=== PATIENT | female | born 1970 | race Caucasian/White ===

== ENCOUNTER 2020-04-03 05:35 | Observation (INO) ==
--- NOTE | 2020-03-27 15:17 | Anesthesiology Consultation ---
Date of Service March 27, 2020 Assessment & Plan (1) Encounter for pre-operative examination: Chart Review Chart Review: Acceptable Risk for Surgery (pending 03/27 Covid results ) and Patient NOT seen in Pre Admission Testing Per nursing assessment 03/27/2020, patient resides in [facility]. Denies any other travel.. No known contact with PUIs or Covid positive people. No current Covid related symptoms. Had preop Covid testing done 03/27- results pending Left breast lumpectomy with axillary node dissection 03/06/2020 = done under [facility] with LMA #4. No issues noted History Surgery Operation Date: 04/03/20 07:00 Proposed Procedures p Left Breast Mastectomy - Antolin Edmondson DO, FACS Height/Weight Height: 5 ft 8 in Weight: 88.451 kg Allergies Allergy/AdvReac Type Severity Reaction Status Date / Time No Known Drug Allergies Allergy Verified 03/27/20 10:04 Medications Home Medications Medication Instructions Recorded Confirmed Last Taken apixaban 5 mg tablet 5 mg PO BID #60 tab 12/14/19 03/27/20 03/03/20 20:30 omeprazole 20 mg capsule,delayed 20 mg PO DAILY PRN 02/13/20 03/27/20 03/05/20 19:00 release loratadine [Claritin] 10 mg PO QAM 02/29/20 03/27/20 03/05/20 11:00 sulfamethoxazole 800 1 tab PO BID #14 tab 03/26/20 03/27/20 Unknown mg-trimethoprim 160 mg tablet Past Medical History Medical History Anxiety Breast cancer CHEMO; LUMPECTOMY Deep vein thrombosis LEFT ARM AFTER A-PORT SURGERY. ON ELIQUIS. Depression with anxiety GERD (gastroesophageal reflux disease) History of arthritis History of migraine Port-A-Cath in place PLACED 08/2019 Skin cancer Swelling PT REPORTS ONGOING SWELLING TO LEFT BREAST AFTER LUMPECTOMY - REASON FOR CURRENT ABX - HAS APPT WITH SURGEON 03/27/20 FOR ASPIRATION TO R/O INFECTION Past Family History Family History Father Malignant neoplasm of larynx Mother COPD (chronic obstructive pulmonary disease) Denies family history of Ovarian cancer Breast cancer Colorectal cancer Past Surgical History Surgical History H/O toe surgery lora hammertoes History of cryosurgery cervix History of dental surgery History of lumpectomy of left breast 03/06/2020 [facility] Hx of carpal tunnel repair BL S/P colonoscopy S/P lumbar fusion S/P tonsillectomy S/P tubal ligation Status post surgery A-PORT (08/2019) Social History Smoking Status: Current every day smoker tobacco type: cigarettes Smoking cigarettes per day: 3/4 PPD Do You Dip or Chew Tobacco: No Hx Alcohol Use: Yes Alcohol type: beer alcohol intake frequency: holidays/special occasions only Hx Substance Use: No substance use type: does not use Testing Laboratory Results Laboratory Tests 03/27/20 03/27/20 14:05 14:05 WBC 7.11 Hgb 13.8 Hct 39.9 Plt Count 175 Sodium 138 Potassium 3.4 L Chloride 106 Carbon Dioxide 26 BUN 7 Creatinine 0.72 Glucose 99 Electrocardiogram Date: 09/06/19 Findings: + NSR @ (74) Nonspecific T wave abnormality. Chest X-Ray Date: 09/20/19 There is been interval placement of a right-sided A-Port catheter. The tip projects over the superior vena cava. There is no pneumothorax. Heart is the upper limits of normal in size. There is diffuse elevation of interstitium, consistent with mild pulmonary vascular congestion/fluid overload. There is no lobar consolidation Echocardiogram Date: 09/19/19 EF: 65 to 70% LV Function: normal RWMA: + none Valvular Disease: + no significant valvular disease
[2020-04-03] MEDS ORDERED: LR 15ML/HR IV SCH (06:00)
[2020-04-03] MEDS ORDERED: CEFAZOLIN 2000MG 2,000 MG/15 ML SYR IV SCH (06:00)
[2020-04-03] MEDS ORDERED: PROPOFOL IV EMULSION 10 MG/ML 20 ML VIAL IV ONE (06:36)
[2020-04-03] MEDS ORDERED: LIDOCAINE HCL 2% 2 ML VIAL/AMP(20MG/ML) INFIL ONE (06:36)
[2020-04-03] MEDS ORDERED: MIDAZOLAM HCL 1 MG/ML 2ML VIAL ONE (06:36)
[2020-04-03] MEDS ORDERED: fentaNYL citrate 100 MCG/2 ML VIAL ONE ×2 (06:36→07:37)
[2020-04-03] MEDS ORDERED: DEXAMETHASONE SOD INJ 4 MG/ML VIAL ONE (06:36)
[2020-04-03] MEDS ORDERED: ONDANSETRON INJ 2 MG/ML 2 ML VIAL ONE (06:36)
[2020-04-03] MEDS ORDERED: BUPIVACAINE 0.5 % 5 MG/1 ML MPF 30ML VIAL ONE (06:48)
[2020-04-03] MEDS ORDERED: BUPIVACAINE LIPOSOME 1.3% 266 MG/20 ML VIAL ONE (06:48)
[2020-04-03] MEDS ORDERED: ONDANSETRON INJ 2 MG/ML 2 ML VIAL IV PRN ×2 (06:50→10:58)
[2020-04-03] MEDS ORDERED: HYDROmorphone INJ 1 MG/ML SYRINGE IV PRN (06:50)
[2020-04-03] MEDS ORDERED: ATROPINE SULFATE 0.1 MG/ML 10ML SYR IV PRN (06:50)
[2020-04-03] MEDS ORDERED: ePHEDrine sulfate 50 MG/ML AMP IV PRN (06:50)
--- NOTE | 2020-04-03 06:58 | History & Physical Bridge Note ---
Date of Service April 03, 2020 History & Physical Bridge Note I have examined the patient, reviewed the History & Physical and in the interval since the performance of the History & Physical I have noted the following changes of clinical significance: sterile seroma aspirated, otherwise no change. no changes noted
--- NOTE | 2020-04-03 09:12 | Operative Report ---
PG Post Operative Report Pre & Post Diagnosis Operation Date: 04/03/20 07:00 Pre-Op Diagnosis: Left Breast Cancer Post-Op Diagnosis: Left Breast Cancer I identified the patient and participated in the time-out.: Yes Procedure Operation Date: 04/03/20 07:00 Actual Procedures p Left Breast Mastectomy(Left) - Antolin Edmondson DO, FACS Surgeon Antolin Edmondson DO, FACS Egg Candler Tati Sy Estimated Blood Loss 20 Findings Consistent with Post-Op Diagnosis left mastectomy performed, good hemostasis, drain placed. Specimens left breast Drains 10mm agus drain Anesthesia Type General Complications none Disposition Accompanied Patient To Recovery: No Disposition: Recovery Room Indications 49-year-old female with triple negative breast cancer and history of neoadjuvant chemotherapy status post left breast lumpectomy with positive margins. After discussion at multidisciplinary cancer conference as well as discussion with the patient, plan for left mastectomy. The risks of the procedure were discussed, all questions were answered, and the patient agreed to proceed with surgery as planned. Description of Procedure The patient was properly identified, consented, and taken to the operating room where she was placed in the supine position. General endotracheal anesthesia was induced. SCDs and a safety belt were placed. Preoperative antibiotics were administered. The patient's left chest and axilla were prepped and draped in the standard sterile fashion. Surgical timeout was performed and all parties were in agreement that this was the correct patient and procedure to be performed and we continued as planned. A transversely oriented elliptical incision was made that encompassed the nipple-arreolar complex and the prior incision on the left breast. Subcutaneous flaps were raised to the clavicle superiorly, the sternum medially, and the rectus sheath inferiorly. Care was taken to leave a few millimeters of fat underneath the skin flaps. The breast was then taken off the chest wall including the pectoralis fascia from superior medial to inferior lateral. We did encounter a prior seroma cavity which was completely excised. We completed the dissection to the serratus and the specimen was removed. The specimen was oriented. The wound was irrigated and hemostasis was confirmed. A 10 mm AGUS drain was placed underneath the mastectomy flap. These exited inferior to the incision and were secured into place with 2-0 nylon sutures. The skin was closed with interrupted 3-0 Vicryl deep dermal sutures, followed by 4-0 Monocryl running subcuticular suture. Dermabond was placed over the incision. A drain sponge and sterile dressings were applied and secured into place using a postsurgical bra. The patient was extubated in the operating room and taken to the PACU where she recovered without apparent incident. All sponge, instrument and needle counts were correct at the conclusion of the procedure. The patient tolerated the procedure well. The physician professional nursing assistant was present and scrubbed for the entire the case. She was critical in positioning the patient, prepping and draping, retraction and exposure, closure the incisions, and placement of the dressings. I attest to the content of the Intraoperative Record and any orders documented therein. Any exceptions are noted below.
[2020-04-03] MEDS: fentaNYL citrate 100 MCG/2 ML VIAL IV PRN ×4 (09:36→09:55)
[2020-04-03] MEDS ORDERED: OXYCODONE/ACETAMINOPHEN 5mg/325mg TAB PO PRN (10:58)
[2020-04-03] MEDS ORDERED: MoRPHine SULFATE 2 MG/ML CARP IV PRN (10:58)
[2020-04-03] MEDS ORDERED: MoRPHine SULFATE 4 MG/ML 1 ML CARP\\VIAL IV PRN (10:58)
--- NOTE | 2020-04-03 14:36 | Anesthesiology Progress Note ---
Date of Service April 03, 2020 Anesthesia Post Procedure Vital Signs Vital Signs: Temp Pulse Pulse Resp BP Pulse Ox 04/03/20 13:07 66 16 102/66 92 04/03/20 12:10 63 16 100/65 92 04/03/20 12:08 75 15 100/67 93 04/03/20 11:10 66 16 106/68 92 04/03/20 11:01 36.2 C L 70 18 121/78 92 04/03/20 10:20 69 14 107/63 94 04/03/20 10:10 36.4 C L 68 16 119/73 94 04/03/20 10:00 74 14 120/70 95 04/03/20 09:50 68 16 110/78 94 04/03/20 09:40 76 12 113/77 93 04/03/20 09:30 82 20 115/72 94 04/03/20 09:21 36.0 C L 85 22 118/88 94 04/03/20 06:19 36.6 C 71 20 112/64 97 Pain Intensity Left Axilla: Pain Intensity: 6 Transfer of Care Handoff Completed per policy Notes Mental Status: alert / awake / arousable and participated in evaluation Patient Amnestic to Procedure: Yes Nausea / Vomiting: adequately controlled Pain: adequately controlled Airway Patency, RR, SpO2: stable & adequate BP & HR: stable & adequate Hydration State: stable & adequate Anesthetic Complications: no major complications apparent and Pt Satisfied with anesthetic care
[2020-04-03] MEDS: LACTATED RINGER'S 1,000 ML IV SCH ×2 (14:40→18:38)
[2020-04-03] MEDS: OXYCODONE/ACETAMINOPHEN 5mg/325mg TAB PO PRN ×2 (16:01→21:59)
[2020-04-03] MEDS: CEFAZOLIN 2000MG 2,000 MG/15 ML SYR IV SCH ×2 (16:01→23:51)
[2020-04-04] MEDS: OXYCODONE/ACETAMINOPHEN 5mg/325mg TAB PO PRN ×3 (02:18→10:55)
[2020-04-04] MEDS: LACTATED RINGER'S 1,000 ML IV SCH (06:21)
[2020-04-04 07:19] LABS: Hematocrit (blood only) 37.1 % (37-47); Hemoglobin 12.4 g/dL (12.0-16.0); Mean Corpuscular Hemoglobin 33.5 pg (25-34); Mean Corpuscular Hgb Conc 33.4 g/dL (32-36); Mean Corpuscular Volume 100.3 fL (80-100); Mean Platelet Volume 10.7 fL (7.4-10.4); Platelet Count 164 K/uL (130-400); RDW Coefficient of Variation 13.9 % (11.5-14.5)
[2020-04-04 07:29] LABS: BUN Creatinine Ratio 14.2 (10-20); Est GFR (Non-African American) 106.1
[2020-04-04] MEDS: CEFAZOLIN 2000MG 2,000 MG/15 ML SYR IV SCH (07:35)
--- NOTE | 2020-04-04 08:24 | Anesthesiology Progress Note ---
Date of Service April 04, 2020 Anesthesia Post Procedure Vital Signs Vital Signs: Temp Pulse Pulse Resp BP Pulse Ox 04/04/20 07:48 36.3 C L 56 L 16 99/63 L 95 04/04/20 03:20 92 04/04/20 03:10 82 L 04/04/20 03:07 36.7 C 67 18 113/55 L 92 04/03/20 23:57 92 04/03/20 23:09 36.7 C 68 18 91/56 L 90 04/03/20 20:16 36.4 C L 60 16 102/57 L 91 04/03/20 16:03 36.5 C 64 16 120/68 94 04/03/20 13:07 66 16 102/66 92 04/03/20 12:10 63 16 100/65 92 04/03/20 12:08 75 15 100/67 93 04/03/20 11:10 66 16 106/68 92 04/03/20 11:01 36.2 C L 70 18 121/78 92 04/03/20 10:20 69 14 107/63 94 04/03/20 10:10 36.4 C L 68 16 119/73 94 04/03/20 10:00 74 14 120/70 95 04/03/20 09:50 68 16 110/78 94 04/03/20 09:40 76 12 113/77 93 04/03/20 09:30 82 20 115/72 94 04/03/20 09:21 36.0 C L 85 22 118/88 94 Pain Intensity Left Axilla: Pain Intensity: 5 Notes Mental Status: alert / awake / arousable and participated in evaluation Nausea / Vomiting: adequately controlled Pain: adequately controlled Airway Patency, RR, SpO2: stable & adequate BP & HR: stable & adequate Hydration State: stable & adequate Anesthetic Complications: Pt Satisfied with anesthetic care
--- NOTE | 2020-04-04 08:53 | Surgery Progress Note ---
Date of Service April 04, 2020 Assessment & Plan (1) Malignant neoplasm of left breast: POD#1 left breast mastectomy regular diet as tolerates Hbg stable at 12.4 continue pulmonary toilet and activity as tolerates KEDAR drain serosancc output. will ask for KEDAR drain teaching prior to dispo will check up on later for likely discharge today will leave instructions for pt to follow up in clinic with Dr. ordonez within 1-2 weeks Supervising Physician Co-Signing Physician Notes Patient S&E, agree with above. POD#1 left simple mastectomy. Doing well, pain controlled, drain with 90cc ss output, hg stable. flaps viable. plan to d/c today, f/u next week in clinic for possible drain removal. Subjective Patient had a good night. Says she feels hungry this AM. Has some expected incisional soreness, but is manageable with the pain medication. Physical Exam Physical Exam: awake/alert Chest (Breasts): Additional Comments: surgical dressings c/d/i KEDAR drain serosancc Results & Data Vital Signs (Past 12 Hours) Vital Signs Temp Pulse Resp BP Pulse Ox 04/04/20 07:48 36.3 C L 56 L 16 99/63 L 95 04/04/20 03:20 92 04/04/20 03:10 82 L 04/04/20 03:07 36.7 C 67 18 113/55 L 92 04/03/20 23:57 92 04/03/20 23:09 36.7 C 68 18 91/56 L 90 PG Care Time/CCT Total # of Minutes Spent Total Time Spent with Patient: Total time spent is greater than 50% in co ordination of care (as documented) at patient's floor/unit and/or counseling patient: Coding Level of Care Code None Diagnoses Malignant neoplasm of left breast C50.912
[2020-04-04] MEDS ORDERED: OXYCODONE/ACETAMINOPHEN 5mg/325mg TAB PO PRN (08:58)
[2020-04-04] MEDS ORDERED: PANTOprazole 40 MG TAB PO SCH (09:00)
[2020-04-04] MEDS ORDERED: LORATADINE 10 MG TAB PO SCH (09:00)
--- NOTE | 2020-04-05 12:51 | Discharge Summary ---
Date of Service April 05, 2020 Principal Diagnosis malignant neoplasm of left breast Discharge Exam awake/alert Respiratory normal respiratory effort Chest (Breasts) Additional Comments: surgical dressings to left chest c/d/i, KEDAR drain with serosanguineous output Discharge Data Allergies Allergy/AdvReac Type Severity Reaction Status Date / Time No Known Drug Allergies Allergy Verified 04/03/20 06:04 Procedures Performed Operation Date: 04/03/20 07:00 Actual Procedures p Left Breast Mastectomy(Left) - Antolin Edmondson DO, FACS Hospital Course (1) Malignant neoplasm of left breast: This is a 49y F with a PMH of left breast cancer who went to the OR on 04/03/[address] Edmondson for a planned left breast mastectomy. The patient tolerated the procedure well, see operative report for full details. The patient recovered in the PACU and was transferred to the surgical nursing floor in stable condition with a KEDAR drain, regular diet, and pain medication as needed. Overnight the patient had no acute issues. POD#1 she was tolerating a regular diet, pain managed with prn meds, surgical site c/d/i, and she was educated on KEDAR drain care. Her Hbg was stable post op and she was instructed to resume her home eliquis. On 04/04 the patient was deemed stable for discharge to home with instructions to follow up in the surgery clinic within 1 week. Total Time Total Time Spent Total Time Spent (In Minutes): 10 Discharge Plan Discharge Items Patient Disposition: Home - Self-Care Reason For Visit: Left Breast Cancer Discharge Diagnosis: left breast mastectomy Activity: Per Instructions section Lifting Comment: no more than 20lbs Bathing Comment: may shower starting 04/04/20; no soaking in tubs Exercise/Sports: Wait until after follow-up appointment Driving/Machine Use: do not resume driving while taking narcotics for pain Non-emergency contact: Surgeon Call non-emergency contact if: you have any medication questions, your symptoms worsen, your pain is not controlled, your pain is worsening, your pain is unusual for you, you have a fever, your temperature is above 101.5, your wound has increased redness, your wound has increased drainage and your wound pain has increased Follow-up/Referrals: Cresencio Sanon MD [Primary Care Provider] - Antolin Edmondson DO, FACS [Physician] - 04/09/20 9:45 am (Please call to schedule follow up in clinic within 1-2 weeks) Diet: Regular Addtl Attending Provider Instructions: Please care for your surgical drain as instructed prior to discharge from the hospital. Empty is 2-3 times daily as needed. You may remove your surgical dressing and shower, no soaking or scrubbing the wounds. You may place gauze between your skin and bra to lessen irritation aroun d the incision You may resume your Eliquis Pending Studies at Discharge: Yes Studies:: surgical pathology Stand-Alone Forms: [facility], Opioid Pain Management Medications and DC Order Prescriptions: New oxycodone-acetaminophen [Percocet] 5-325 mg tablet 1 - 2 tab PO .q4-6h PRN (Reason: pain, for initial therapy, max 6 tabs per day) Qty: 15 RF: 0 Continued Eliquis 5 mg tablet 5 mg PO BID Qty: 60 RF: 5 omeprazole 20 mg capsule,delayed release(DR/EC) 20 mg PO DAILY PRN (Reason: Acid Reflux) RF: 0 loratadine [Claritin] 10 mg Tablet 10 mg PO QAM RF: 0 Discharge Orders: Discharge Order (Routine); Ordered 04/04/20 Ordered By: Tati Carty/Other Patient Handouts: DVT Post Op Prevention, Mastectomy Admission Data Admit Date/Time: 04/03/20 09:23 Attending Provider: Antolin Edmondson Admit Provider: Antolin Edmondson Primary Care Provider: Cresencio Sanon Other Interventions: Discharge Summary Assessment (RN) Last Done: 04/04/20 10:37 DC Date/Time DO NOT enter until pt leaves facility: 04/04/20 12:03 Coding Level of Care Code D/C Day Management <30 mins Diagnoses Malignant neoplasm of left breast C50.912
== END 2020-04-04 12:03 | disposition home or self-care (01) ==
LOC: 3N 05:35 → ASU 05:35

== ENCOUNTER 2020-10-02 14:06 | Inpatient (IN) ==
--- NOTE | 2020-10-02 15:03 | Emergency Department Note ---
Impression & Plan Hypoxia, Pleural effusion, Ascites, Acute hyponatremia, Elevated liver enzymes ED Provider Note NAME: SHRADDHA ZAMUDIO AGE: 49 SEX: F : 1970 ARRIVES VIA: Walk-In INFORMANT: [Patient] ED PROVIDER(S): [Cresencio Sotelo MD] CHIEF COMPLAINT: Shortness of breath HISTORY OF PRESENT ILLNESS: The patient is a 49-year-old female who presents to the ER with about 3 weeks of shortness of breath. She has gained about 19 pounds in just around a months timeframe. She has noticed abdominal bloating, leg edema. No real cough. She states that she has not had a fever. Patient noticed some dark urine in the last week and has had some occasional burning and frequency. The patient states that she has no appetite but she is not vomiting. She does not have diarrhea. She states that she has to sleep in a recliner, she cannot lie flat. The patient states that she does have breast cancer, it is metastatic. She is taking oral chemotherapy. She has a DVT in her left upper extremity and is currently on Coumadin. She went to the cancer center today, her O2 saturation was 80%, she was placed on oxygen and sent to the ED. Lab work was drawn at the cancer center. REVIEW OF SYSTEMS: See HPI for pertinent positives and negatives. A total of ten systems were reviewed and were otherwise negative. PMHx/PSHx: See Below SOCIAL HISTORY: See Below. PHYSICAL EXAM: GENERAL: Patient is in no acute distress. HEENT: No acute trauma, normocephalic atraumatic, mucous membranes moist, no nasal congestion, no scleral icterus. NECK: No stridor, no adenopathy, no meningismus, trachea is midline. LUNGS: No respiratory distress, no obvious wheeze. No accessory muscle use. HEART: Regular rate and rhythm, equal radial pulses bilaterally. ABDOMEN: Soft, nontender, bowel sounds positive, no hernias, no peritonitis. The abdomen is distended and she does appear to have a fluid wave. EXTREMITIES: No cyanosis, moderate bilateral pedal edema, the left upper extrem ity is also edematous, full range of motion of all the joints without pain or difficulty, no signs for acute trauma. NEUROLOGIC: Oriented x 3, no acute motor or sensory deficits, no focal weakness. SKIN: No rash, no jaundice, no diaphoresis. DIFFERENTIAL DIAGNOSIS: Reactive airway disease, pneumonia, pneumothorax, COPD, CHF, fluid overload, ascites, DVT, infections, cardiac ischemia, pulmonary embolism, musculoskeletal, gastrointestinal, as well as other pathologies. EMERGENCY DEPARTMENT COURSE/PROCEDURES: ECG: Indication was shortness of breath. The ECG shows a normal sinus rhythm with a rate of 98. There is no ST elevation, no PVCs. The QTc is 477. Continuous Cardiac Monitoring: An order was placed for continuous cardiac monitoring. The monitor shows a rate of 93 with normal sinus rhythm. MEDICAL DECISION MAKING: The laboratory work done earlier today showed a white count of 5.2. There was a normal hemoglobin. There was a normal platelet count. Sodium was low at 125. No kidney failure. There were elevated liver enzymes, alk phos was 195, bilirubin was 1.9. Lab work performed at this ED visit showed a normal BNP. There were no findings to suggest thyroid dysfunction. Covid test was negative. INR was quite high at greater than 9.7. She is over anticoagulated. Chest x-ray showed a left pleural effusion. Chest CT did not show PE, a left pleural effusion was seen. Abdominal and pelvis CT showed significant ascites. Bilateral lower extremity ultrasound did not show any evidence for DVT. The patient presents hypoxic. She has abdominal ascites, she has a pleural effusion. She is hyponatremic. She is over anticoagulated. The patient was maintained on nasal cannula O2. She was given 5 mg of oral vitamin K for the high INR. The patient needs a hospital stay for hypoxia, fluid overload and hyponatremia. I did speak to the patient about her findings, I spoke with case management. The on-call hospitalist was consulted. Past Med/Surg History Medical History Allergic rhinitis Anxiety Breast cancer CHEMO; LUMPECTOMY Breast cancer, right breast Chronic GERD Deep vein thrombosis LEFT ARM AFTER A-PORT SURGERY. ON ELIQUIS. Depression with anxiety GERD (gastroesophageal reflux disease) History of arthritis History of migraine Port-A-Cath in place PLACED 08/2019 Skin cancer Swelling PT REPORTS ONGOING SWELLING TO LEFT BREAST AFTER LUMPECTOMY - REASON FOR CURRENT ABX - HAS APPT WITH SURGEON 03/27/20 FOR ASPIRATION TO R/O INFECTION Surgical History (Updated 04/08/20 @ 11:18 by Antolin Edmondson DO, FACS) H/O mastectomy (04/03/20) Left Breast Mastectomy Dr. Edmondson 04/03/20 H/O toe surgery lroa hammertoes History of cryosurgery cervix History of dental surgery History of lumpectomy of left breast 03/06/2020 [facility] Hx of carpal tunnel repair BL S/P colonoscopy S/P lumbar fusion S/P tonsillectomy S/P tubal ligation Status post surgery A-PORT (08/2019) Family History (Updated 08/22/20 @ 10:22 by Oly Gonzalez RN) Father Malignant neoplasm of larynx Heart disease Mother COPD (chronic obstructive pulmonary disease) Cancer Denies family history of Ovarian cancer Breast cancer Colorectal cancer Social History Smoking Status: Current every day smoker packs per day: 1; Years Smoked: 20; Cigarettes Per Day: 1PPD; Second Hand Exposure: No; Hx Alcohol Use: Yes Alcohol type: beer Hx Substance Use: No Preferred Language: Maori Communication Ability: 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 Beliefs That Will Affect Care: None marital status: Current Living Situation: Spouse current occupational status: unemployed Feels Safe at Home: Yes Assistive Devices: Denture - Upper and Glasses Allergies Allergies Allergy/AdvReac Type Severity Reaction Status Date / Time No Known Drug Allergies Allergy Unknown Verified 10/02/20 16:32 Home Meds Home Medications Medication Instructions Recorded Confirmed omeprazole 20 mg capsule,delayed 20 mg PO DAILY PRN 02/13/20 10/02/20 release loratadine [Claritin] 10 mg PO QAM PRN 02/29/20 10/02/20 warfarin 5 mg tablet 2.5 - 5 mg PO UD tab 09/18/20 10/02/20 Chemo Pill 5 tabs PO AMHS 10/02/20 10/02/20 oxycodone 2.5 mg PO HS 10/02/20 10/02/20 Results & Data (ED) Vital Signs Vital Signs - 24 hr 10/02/20 14:08 10/02/20 16:07 10/02/20 18:00 Temperature 36.6 C Temperature Source Oral Pulse Rate 92 H Pulse Rate [Right Finger] 93 H 96 H Respiratory Rate 20 18 20 Respiratory Effort / Characteristics Non-Labored Spontaneous Non-Labored Spontaneous Non-Labored Spontaneous Respiratory Depth Normal Normal Respiratory Pattern Regular Blood Pressure 108/69 Blood Pressure [Right Arm] 123/81 128/93 Blood Pressure Mean 82 Blood Pressure Mean [Right Arm] 95 104 Blood Pressure Position [Right Arm] Sitting Sitting Pulse Oximetry 98 98 94 Oxygen Delivery Method Room Air Room Air Nasal Cannula Oxygen Flow Rate 2 2 Sepsis Recent Fever Within 48 Hours No Sepsis New/Unexplained Change in Mental Status N/A Sepsis Action Taken by Nursing No Action Required Home Medications Current Medication List: was personally reviewed by me Laboratory Data Attestation: I reviewed the patient's lab results. Lab Results 10/02/20 10/02/20 10/02/20 Range/Units 15:23 15:23 Unknown PT > 90.0 H (9.0-12.0) Seconds INR > 9.7 H* (0.9-1.1) APTT 70.2 H* (21.0-31.0) Seconds PTT Ratio 2.5 Magnesium (1.8-2.4) mg/dl NT-Pro-B Natriuret Pep 42 (0-900) pg/ml TSH 2.850 (0.300-4.500) uIu/ml SARS-CoV-2 Ag (Rapid) Negative (Negative) Administered Medications Discontinued Medications Ioversol (Optiray 320 125ml) 119 ml IV ONCE ONE Stop: 10/02/20 15:46 Last Admin: 10/02/20 15:46 Dose: 119 ml Documented by: [id number] Phytonadione (Phytonadione 5 Mg Tab) 5 mg PO NOW STA Stop: 10/02/20 17:51 Last Admin: 10/02/20 18:49 Dose: 5 mg Documented by: [id number] Imaging Data Radiologist's Impression: XR chest 1V portable HISTORY: Shortness of breath. COMPARISON: Chest 09/20/2019. FINDINGS: No pneumothorax. Right jugular Port-A-Cath remains in the SVC. The heart is normal in size. Small to moderate left and trace right pleural effusions. There are surgical clips within the left axilla. Mild diffuse interstitial thickening. This could be chronic or represent mild congestive change. Left basilar densities are nonspecific but favor atelectasis from the pleural effusion. IMPRESSION: 1. Small to moderate left and trace right pleural effusions. These have progressed. 2. Mild diffuse interstitial thickening. This could be due to mild congestive change. 3. Left basilar densities likely represent atelectasis from the pleural effusion. CT angio chest PE protocol CT DOSE: 2270.25 mGy.cm HISTORY: 49 years-old Female with PE, has dvt. Acute shortness of breath with left upper extremity deep venous thrombosis. History of breast cancer with extensive metastatic disease. TECHNIQUE: Multiple CTA images of the chest were obtained after the intravenous administration of 119 ml Optiray 320. Coronal and sagittal MIPS were obtained from the axial data set and were submitted for review. All measurements were obtained according to NASCET criteria. A dose lowering technique was utilized adhering to the principles of ALARA. COMPARISON: CT abdomen and pelvis of same day, PET CT 08/28/2020 FINDINGS: CTA: Right IJ [id number] catheter distal tip terminates within the inferior SVC. Heart is normal in size. Trace pericardial effusion. Mild coronary artery calcifications. No thoracic aortic aneurysm or dissection. Findings are suspicious for a small partially occlusive thrombus within the proximal left axillary artery, image 223 series 4. There is moderate subcutaneous and deep tissue edema adjacent to left brachial and axillary vessels. The pulmonary artery is opacified to the level of the proximal segmental branches and demonstrates no filling defects to suggest thromboembolic disease. Respiratory motion limits evaluation of the pulmonary artery. CT CHEST: Subcentimeter thyroid nodules. Postoperative changes of prior left axillary kelle dissection. Spiculated lesion of the left axilla measuring up to 2.8 cm appears unchanged. Enlarged mediastinal and hilar lymph nodes are again noted measuring up to 7 mm. No new or progressive lymphatic disease within the chest. Prominent and mildly enlarged retrocrural lymph nodes have increased in size now measuring 8 mm, previously measuring approximately 4 mm in short axis. Prominent right axillary chain lymph nodes have also mildly increased in size. Moderate left pleural effusion has increased in size. Consolidation of the basal left lower lobe. No pneumothorax. Mild emphysema. No overt pulmonary edema. Resection changes of the anterior segment right upper lobe. Nonspecific mild to moderate bilateral bronchial wall thickening. Central airways are patent. Upper abdominal peritoneal carcinomatosis with abdominal ascites and pathologic adenopathy. Moderate generalized body wall edema. Left mastectomy changes. Dermal thickening of the left chest wall and right breast with multifocal soft tissue asymmetries throughout the right breast. No acute fracture or suspicious bone lesion. IMPRESSION: 1. Limited exam without evidence of pulmonary thromboembolic disease. 2. Progressive progressive disease manifested by increased size of the metastatic adenopathy with increased size of the left pleural effusion which is now moderate and likely malignant. 3. Upper abdominal peritoneal carcinomatosis with pathologic adenopathy and ab dominal ascites. 4. Additional findings as above. CT OF THE ABDOMEN AND PELVIS WITH CONTRAST CLINICAL HISTORY: Abdominal pain and bloating. History of breast cancer. COMPARISON STUDY: PET/CT August 28, 2020. TECHNIQUE: Following IV administration of 119 mL of Optiray-320, axial images of the abdomen and pelvis were obtained from the lung bases to the proximal femurs. Images were reviewed in the axial, sagittal, and coronal planes. IV contrast was administered without complication. Automated exposure control was utilized for the study. A dose lowering technique was utilized adhering to the principles of ALARA. FINDINGS: Please note that the chest CT will be reported separately. No pneumatosis, free air or portal venous gas is present. There is no biliary or pancreatic ductal dilatation. No hepatic lesions are present. There are calcified granulomas within the spleen. The adrenal glands, kidneys and pancreas are normal. There is no hydronephrosis. Anasarca is noted. There has been interval development of moderate abdominal and pelvic ascites since PET/CT of August 28, 2020. Multifocal peritoneal/omental nodularity is noted. Me asurements are difficult to obtain given ill-defined margins. The amount of peritoneal disease has likely increased since prior PET/CT. There is no evidence for a bowel obstruction. Colonic diverticulosis is noted without evidence for acute diverticulitis. There is no evidence for acute appendicitis. There are postoperative findings within the spine. No suspicious lesions are identified within visualized skeletal structures. There is a fat and fluid containing umbilical hernia. No abdominal or pelvic lymphadenopathy is present. Note is made of a 5.4 cm right ovarian cyst, as shown on prior imaging studies. Major vasculature appears patent. IMPRESSION: 1. Interval development of moderate ascites since PET/CT of August 28, 2020. This is likely related to peritoneal carcinomatosis which has progressed since prior PET/CT. 2. No bowel obstruction. 3. Redemonstration of a 5.4 cm right ovarian cyst. 4. Left pleural effusion, better depicted on the chest CT. Please see that report for further description. 5. Anasarca. BILATERAL LOWER EXTREMITY VENOUS DOPPLER CLINICAL HISTORY: Bilateral lower extremity swelling. COMPARISON STUDY: No previous studies for comparison. TECHNIQUE: Sonography of the deep venous system of the bilateral lower extremities was performed. Compression and augmentation were evaluated. FINDINGS: The bilateral common femoral, superficial femoral and popliteal veins were compressible. Augmentation was normal. Flow was shown within the deep calf vessels. IMPRESSION: No evidence of deep venous thrombus within the bilateral lower extremities. Discharge Plan Visit Data Chief Complaint: Shortness of Breath/Dyspnea Stated Complaint: SWELLING IN BOTH LEGS,SOB,POSSIBLE PE ED Provider: Cresencio Sotelo Discharge Problem: Hypoxia, Pleural effusion, Ascites, Acute hyponatremia, Elevated liver enzymes Patient Disposition: Admitted As Inpatient Condition: Fair Forms Stand Alone Forms: [facility] Prescriptions Prescriptions: No Action warfarin 5 mg tablet 2.5 - 5 mg PO UD RF: 0 omeprazole 20 mg capsule,delayed release(DR/EC) 20 mg PO DAILY PRN (Reason: Acid Reflux) RF: 0 loratadine [Claritin] 10 mg Tablet 10 mg PO QAM PRN (Reason: allergies) RF: 0 oxycodone 5 mg tablet 2.5 mg PO HS RF: 0 Chemo Pill 5 tabs PO AMHS RF: 0 Referrals Referrals: Cresencio Sanon MD [Primary Care Provider] - Discharge Problem: Ascites Qualifiers: Ascites type: malignant Qualified Code(s): R18.0 - Malignant ascites
--- NOTE | 2020-10-02 15:22 | XRay Report ---
XR chest 1V portable HISTORY: Shortness of breath. COMPARISON: Chest 09/20/2019. FINDINGS: No pneumothorax. Right jugular Port-A-Cath remains in the SVC. The heart is normal in size. Small to moderate left and trace right pleural effusions. There are surgical clips within the left a xilla. Mild diffuse interstitial thickening. This could be chronic or represent mild congestive shell e. Left basilar densities are nonspecific but favor atelectasis from the pleural effusion. IMPRESSION: 1. Small to moderate left and trace right pleural effusions. These have progressed. 2. Mild diffuse interstitial thickening. This could be due to mild congestive change. 3. Left basilar densities likely represent atelectasis from the pleural effusion. ACT 112: Negative or not required by law. Electronically signed by: Kalin Chambers M.D. 10/02/2020 3:21 PM
[2020-10-02] MEDS ORDERED: OPTIRAY 320 125ml IV ONE (15:45)
--- NOTE | 2020-10-02 16:04 | CT Scan Report ---
CT angio chest PE protocol CT DOSE: 2270.25 mGy.cm HISTORY: 49 years-old Female with PE, has dvt. Acute shortness of breath with left upper extremity deep venous thrombosis. History of breast cancer with extensive metastatic disease. TECHNIQUE: Multiple CTA images of the chest were obtained after the intravenous administration of 119 ml Optiray 320. Coronal and sagittal MIPS were obtained from the axial data set and were submitted for review. All measurements were obtained according to NASCET criteria. A dose lowering technique w as utilized adhering to the principles of ALARA. COMPARISON: CT abdomen and pelvis of same day, PET CT 08/28/2020 FINDINGS: CTA: Right IJ [id number] catheter distal tip terminates within the inferior SVC. Heart is normal in siz e. Trace pericardial effusion. Mild coronary artery calcifications. No thoracic aortic aneurysm or di ssection. Findings are suspicious for a small partially occlusive thrombus within the proximal left a xillary artery, image 223 series 4. There is moderate subcutaneous and deep tissue edema adjacent to left brachial and axillary vessels. The pulmonary artery is opacified to the level of the proximal segmental branches and demonstrates no filling defects to suggest thromboembolic disease. Respiratory motion limits evaluation of the pulmo nary artery. CT CHEST: Subcentimeter thyroid nodules. Postoperative changes of prior left axillary kelle dissection. Spicula ryan lesion of the left axilla measuring up to 2.8 cm appears unchanged. Enlarged mediastinal and brooke r lymph nodes are again noted measuring up to 7 mm. No new or progressive lymphatic disease within th e chest. Prominent and mildly enlarged retrocrural lymph nodes have increased in size now measuring 8 mm, previously measuring approximately 4 mm in short axis. Prominent right axillary chain lymph node s have also mildly increased in size. Moderate left pleural effusion has increased in size. Consolidation of the basal left lower lobe. No pneumothorax. Mild emphysema. No overt pulmonary edema. Resection changes of the anterior segment rig ht upper lobe. Nonspecific mild to moderate bilateral bronchial wall thickening. Central airways are patent. Upper abdominal peritoneal carcinomatosis with abdominal ascites and pathologic adenopathy. Moderate generalized body wall edema. Left mastectomy changes. Dermal thickening of the left chest wall and ri ght breast with multifocal soft tissue asymmetries throughout the right breast. No acute fracture or suspicious bone lesion. IMPRESSION: 1. Limited exam without evidence of pulmonary thromboembolic disease. 2. Progressive progressive disease manifested by increased size of the metastatic adenopathy with inc reased size of the left pleural effusion which is now moderate and likely malignant. 3. Upper abdominal peritoneal carcinomatosis with pathologic adenopathy and abdominal ascites. 4. Additional findings as above. ACT 112: Negative or not required by law. The above report was generated using voice recognition software. It may contain grammatical, syntax o r spelling errors. Electronically signed by: Matty Florence M.D. 10/02/2020 4:03 PM
--- NOTE | 2020-10-02 16:06 | CT Scan Report ---
CT OF THE ABDOMEN AND PELVIS WITH CONTRAST CLINICAL HISTORY: Abdominal pain and bloating. History of breast cancer. COMPARISON STUDY: PET/CT August 28, 2020. TECHNIQUE: Following IV administration of 119 mL of Optiray-320, axial images of the abdomen and pelv is were obtained from the lung bases to the proximal femurs. Images were reviewed in the axial, sagit hortencia, and coronal planes. IV contrast was administered without complication. Automated exposure contr ol was utilized for the study. A dose lowering technique was utilized adhering to the principles of ALARA. FINDINGS: Please note that the chest CT will be reported separately. No pneumatosis, free air or port al venous gas is present. There is no biliary or pancreatic ductal dilatation. No hepatic lesions are present. There are calcified granulomas within the spleen. The adrenal glands, kidneys and pancreas are normal. There is no hydronephrosis. Anasarca is noted. There has been interval development of mod erate abdominal and pelvic ascites since PET/CT of August 28, 2020. Multifocal peritoneal/omental no dularity is noted. Measurements are difficult to obtain given ill-defined margins. The amount of trisha toneal disease has likely increased since prior PET/CT. There is no evidence for a bowel obstruction. Colonic diverticulosis is noted without evidence for acute diverticulitis. There is no evidence for acute appendicitis. There are postoperative findings within the spine. No suspicious lesions are iden tified within visualized skeletal structures. There is a fat and fluid containing umbilical hernia. N o abdominal or pelvic lymphadenopathy is present. Note is made of a 5.4 cm right ovarian cyst, as sagar wn on prior imaging studies. Major vasculature appears patent. IMPRESSION: 1. Interval development of moderate ascites since PET/CT of August 28, 2020. This is likely related to peritoneal carcinomatosis which has progressed since prior PET/CT. 2. No bowel obstruction. 3. Redemonstration of a 5.4 cm right ovarian cyst. 4. Left pleural effusion, better depicted on the chest CT. Please see that report for further descrip tion. 5. Anasarca. ACT 112: Negative or not required by law. Electronically signed by: Levy Townsend M.D. 10/02/2020 4:04 PM
[2020-10-02 16:26] LABS: Thyroid Stimulating Hormone 2.85 uIu/ml (0.300-4.500)
[2020-10-02 17:42] LABS: INR > 9.7 (0.9-1.1); Partial Thromboplastin Time 70.2 Seconds (21.0-31.0)
[2020-10-02 17:44] LABS: Partial Thromboplastin Ratio 2.5
[2020-10-02 17:46] LABS: Prothrombin Time > 90.0 Seconds (9.0-12.0)
[2020-10-02] MEDS ORDERED: PHYTONADIONE 5 MG TAB PO STA (17:50)
--- NOTE | 2020-10-02 18:05 | History & Physical Report ---
Date of Service October 02, 2020 Assessment & Plan (1) Hypoxia: 49-year-old female with past medical history left breast triple negative breast cancer status post mastectomy/neoadjuvant therapy /radiation therapy, more recently diagnosed right breast triple negative breast cancer currently u ndergoing chemotherapy and follows with cancer center with Dr. Quintanilla, left upper extremity DVT on warfarin therapy, GERD, lumbar radiculopathy presents with progressive dyspnea and shortness of breath likely secondary to metastatic disease as seen on chest imaging. Shortness of breath Likely secondary to metastatic disease as outlined on imaging below Chest x-ray: Small to moderate left and trace right pleural effusions. These have progressed. Mild diffuse interstitial thickening. Left basilar densities likely represent atelectasis from the pleural effusion. Chest CTA: Without evidence of pulmonary thromboembolic disease. Progressive progressive disease manifested by increased size of the metastatic adenopathy with increased size of the left pleural effusion which is now moderate and likely malignant. Upper abdominal peritoneal carcinomatosis with pathologic adenopathy and abdominal ascites. Supplemental O2 to maintain saturations. Patient currently on 2 L nasal cannula. Normally without any home O2 needs -Spot diuresis, will give IV Lasix 40 mg right now Appreciate pulmonology consult for possible palliative drain We will hold patient's warfarin Defer echo study at present LUE DVT August 2020 venous Doppler study: Deep venous thrombosis of the left brachial vein INR >9.7 on admission. Pt given P.o. Phytonadione 5mg in ED Patient on warfarin therapy, will hold Daily PT/INR History of breast cancer Holding patient's chemo pill regimen as directed Follows with [facility] --Dr. Quintanilla Appreciate heme-onc consult while inpatient Transaminitis AST 195, ALT 109 on admission -likely secondary to metastatic spread as outlined below and in setting of patient's chemotherapy Abdomen pelvis CT: Interval development of moderate ascites since PET/CT of August 28, 2020. This is likely related to peritoneal carcinomatosis which has progressed since prior PET/CT Trend daily CMP Hyponatremia -Na 125 on admission in setting of hypervolemia -Spot diuresis as above Trend daily GERD Continue omeprazole 20 mg as needed FEN/GI: Normal diet, limit fluid intake 1800 mL. N.p.o. after midnight DVT prophylaxis: Warfarin held, SCDs CODE STATUS: Full code Dispo: MedSurg History of Present Illness Chief Complaint: Shortness of breath Primary Care Provider: Cresencio Sanon MD 49-year-old female with past medical history left breast triple negative breast cancer status post mastectomy/neoadjuvant therapy /radiation therapy, more recently diagnosed right breast triple negative breast cancer currently undergoing chemotherapy and follows with cancer center with Dr. Quintanilla, left upper extremity DVT on warfarin therapy, GERD, lumbar radiculopathy presents with progressive dyspnea and shortness of breath that has been ongoing for the past 2 or 3 weeks. Patient was at cancer center earlier today and noted to have oxygen saturations 80%. Patient was placed on oxygen and sent to ED for further evaluation. Patient notes more shortness of breath with exertion with activity as she would normally do fine with. Patient also notes that she has gained roughly 20 pounds in weight during the same time. Notes edema in her legs bilaterally and significant abdominal distention. Associated orthopnea which requires patient to sleep in her recliner. Patient otherwise denies any fevers, chills, sweats, nausea, vomiting, diarrhea, chest pain, diaphoresis palpitations, abdominal pain, URI symptoms, headache, known sick contacts or recent travel anywhere. Patient no other acute concerns or complaints. Pertinent labs: PT >90, INR >9.7, PTT 70.2, sodium 125, T bili 1.9, AST 195, ALT 109, alk phos 195, LDH 619, albumin 2.7, Covid negative Chest x-ray: Small to moderate left and trace right pleural effusions. These have progressed. Mild diffuse interstitial thickening. Left basilar densities likely represent atelectasis from the pleural effusion. Chest CTA: Without evidence of pulmonary thromboembolic disease. Progressive progressive disease manifested by increased size of the metastatic adenopathy with increased size of the left pleural effusion which is now moderate and likely malignant. Upper abdominal peritoneal carcinomatosis with pathologic adenopathy and abdominal ascites. Abdomen pelvis CT: Interval development of moderate ascites since PET/CT of August 28, 2020. This is likely related to peritoneal carcinomatosis which has progressed since prior PET/CT. No bowel obstruction. Redemonstration of a 5.4 cm right ovarian cyst. Venous Doppler lower extremity: No evidence of deep venous thrombus within the bilateral lower extremities. ER course: P.o. Phytonadione 5mg Allergies Allergy/AdvReac Type Severity Reaction Status Date / Time No Known Drug Allergies Allergy Unknown Verified 10/02/20 16:32 morphine AdvReac Nausea Verified 10/03/20 08:02 Home Medications Medication Instructions Recorded Confirmed Type omeprazole 20 mg capsule,delayed 20 mg PO DAILY PRN 02/13/20 10/02/20 History release loratadine [Claritin] 10 mg PO QAM PRN 02/29/20 10/02/20 History Chemo Pill 5 tabs PO AMHS 10/02/20 10/02/20 History oxycodone 2.5 mg PO HS 10/02/20 10/02/20 History warfarin 5 mg tablet 2.5 - 5 mg PO UD tab 10/04/20 10/04/20 History Past Med/Surg History Medical History (Updated 10/03/20 @ 10:14 by CARMELA Clement) Allergic rhinitis Anxiety Breast cancer CHEMO; LUMPECTOMY Breast cancer, right breast Chronic GERD Deep vein thrombosis LEFT ARM AFTER A-PORT SURGERY. ON ELIQUIS. Depression with anxiety GERD (gastroesophageal reflux disease) History of arthritis History of migraine Palliative care encounter Port-A-Cath in place PLACED 08/2019 Skin cancer Swelling PT REPORTS ONGOING SWELLING TO LEFT BREAST AFTER LUMPECTOMY - REASON FOR CURRENT ABX - HAS APPT WITH SURGEON 03/27/20 FOR ASPIRATION TO R/O INFECTION Surgical History H/O mastectomy (04/03/20) Left Breast Mastectomy Dr. Edmondson 04/03/20 H/O toe surgery lora guevara History of cryosurgery cervix History of dental surgery History of lumpectomy of left breast 03/06/2020 [facility] Hx of carpal tunnel repair BL S/P colonoscopy S/P lumbar fusion S/P tonsillectomy S/P tubal ligation Status post surgery A-PORT (08/2019) Family History Father Malignant neoplasm of larynx Heart disease Mother COPD (chronic obstructive pulmonary disease) Cancer Denies family history of Ovarian cancer Breast cancer Colorectal cancer Social History Smoking Status: Current some day smoker packs per day: 1; Years Smoked: 20; Cigarettes Per Day: 1PPD; Second Hand Exposure: Yes; Hx Alcohol Use: Yes Alcohol type: wine Hx Substance Use: No Preferred Language: Kiswahili Communication Ability: Effective 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 Beliefs That Will Affect Care: None marital status: Current Living Situation: Spouse current occupational status: unemployed Feels Safe at Home: Yes Assistive Devices: None Review of Systems Review of Systems: All systems reviewed & are unremarkable except as noted in HPI & below Physical Exam Constitutional: WD/WN, vitals as above Eyes: PERRL, conjunctivae normal, anicteric sclerae ENMT: external ear and nose normal, oropharynx normal Respiratory: normal respiratory effort; no respiratory distress, no labored breathing and does not use accessory muscles Cardiovascular: RRR, no murmur, no edema Chest (Breasts): Chest: + vascular access device or port (Right-sided) Gastrointestinal (Abdomen): Inspection/Auscultation: + abdomen distended Percussion/Palpation: abdomen soft and + fluid wave; abdomen nontender and no guarding Skin: no rashes, warm and dry Psychiatric: A+Ox3, euthymic affect Lymphatic: +1 lower extremity edema bilaterally LUE significantly larger than the right Results & Data Results & Data ([facility]) Vital Signs (Past 12 Hours) Vital Signs Temp Pulse Pulse Resp BP BP Pulse Ox 10/02/20 16:07 93 H 18 123/81 98 10/02/20 14:08 36.6 C 92 H 20 108/69 98 Laboratory Results Laboratory Results - last 24 hr 10/02/20 10/02/20 10/02/20 15:23 15:23 Unknown PT > 90.0 H INR > 9.7 H* APTT 70.2 H* PTT Ratio 2.5 Magnesium NT-Pro-B Natriuret Pep 42 TSH 2.850 SARS-CoV-2 Ag (Rapid) Negative Code Status & VTE Plan Code Status FULL Supervising Physician Co-Signing Physician Notes I personally saw and examined the patient. I verified all landa points and agree with resident physician Dr. Montes with the following exceptions and/or additions: 49-year-old female with metastatic triple negative breast cancer currently undergoing chemotherapy who comes to the ER with shortness of breath. Unfortunately repeat scans show significant worsening of disease and shortness of breath secondary to large left-sided pleural effusion. O/E absent left chest breath sounds to mid zone, crackles above this. Distended, nontender abdomen. A/P Left pleural effusion - suspect secondary to metastatic breast cancer, however possible chemotherapy is affecting her liver but this is much less likely. I discussed options with the patient including Lasix +/- thoracocentesis. Recommend she discusses the benefits vs. risks of thoracocentesis with pulmonology. We will also consult her oncologist and palliative care regarding her disease prognosis as she appears to be leaning more towards a palliative approach. Left upper extremity DVT - secondary to compressive nature of metastatic disease, as I do not suspect this will clear despite anticoagulation, recommend patient elevate upper extremity as much as possible to decrease swelling and pain in this arm. Supratherapeutic INR - defer to hematology oncology regarding further anticoagulation Resident Activity Tracking Resident Involvement: Resident Care Provided Care Provided: Adult [facility]
--- NOTE | 2020-10-02 18:24 | Ultrasound Report ---
BILATERAL LOWER EXTREMITY VENOUS DOPPLER CLINICAL HISTORY: Bilateral lower extremity swelling. COMPARISON STUDY: No previous studies for comparison. TECHNIQUE: Sonography of the deep venous system of the bilateral lower extremities was performed. Co mpression and augmentation were evaluated. FINDINGS: The bilateral common femoral, superficial femoral and popliteal veins were compressible. A ugmentation was normal. Flow was shown within the deep calf vessels. IMPRESSION: No evidence of deep venous thrombus within the bilateral lower extremities. ACT 112: Negative or not required by law. Electronically signed by: Levy Townsend M.D. 10/02/2020 6:23 PM
[2020-10-02] MEDS ORDERED: ACETAMINOPHEN 325 MG TAB PO PRN (20:49)
[2020-10-02] MEDS ORDERED: ALUMINUM/MAGNESIUM SUSP 30 ML UDC PO PRN (20:49)
[2020-10-02] MEDS ORDERED: FUROSEMIDE 40 MG/4 ML VIAL IV STA (20:49)
[2020-10-02] MEDS ORDERED: ONDANSETRON INJ 2 MG/ML 2 ML VIAL IV PRN (20:49)
[2020-10-02] MEDS ORDERED: PANTOprazole 40 MG TAB PO PRN (20:56)
[2020-10-02] MEDS ORDERED: FUROSEMIDE 40 MG in SYRINGE 0 ML IV ONE (21:00)
[2020-10-02] MEDS ORDERED: oxyCODONE HCL IR 5 MG TAB (IMMEDIATE RELEASE) PO SCH (21:00)
[2020-10-02 23:08] LABS: Appearance Urine Clear (Clear); Bacteria Urine Automated Negative (Negative); Bilirubin Urine Negative (Negative); Blood Urine 3+ (Negative); Cast Urine Automated 0 /lpf (0-5); Color Urine Yellow; Epithelial Cell Urine Auto >30 /lpf (0-5); Glucose Urine UA Negative (Negative); Ketones Urine Negative (Negative); Leukocyte Esterase Urine Trace (Negative); Nitrite Urine Negative (Negative); Protein Urine Negative (Negative); RBC Urine Automated >30 /hpf (0-4); Specific Gravity Urine 1.012 (1.000-1.030); Urobilinogen Urine Negative (Negative)
[2020-10-03] MEDS ORDERED: MELATONIN 3 MG TAB PO PRN (02:08)
[2020-10-03 06:25] LABS: Basophils # (auto) 0.02 K/uL (0-0.2); Basophils % (auto) 0.4 %; Eosinophils # (auto) 0.03 K/uL (0-0.5); Eosinophils % (auto) 0.6 %; Hematocrit (blood only) 38.4 % (37-47); Hemoglobin 13.6 g/dL (12.0-16.0); Immature Granulocytes # (auto) 0.01 K/uL (0.00-0.02); Immature Granulocytes % (auto) 0.2 %; Lymphocytes # (auto) 0.58 K/uL (1.2-3.4); Lymphocytes % (auto) 11.6 %; Mean Corpuscular Hemoglobin 33.7 pg (25-34); Mean Corpuscular Hgb Conc 35.4 g/dL (32-36); Mean Corpuscular Volume 95.3 fL (80-100); Mean Platelet Volume 10.8 fL (7.4-10.4); Monocytes # (auto) 0.59 K/uL (0.11-0.59); Monocytes % (auto) 11.8 %; Neutrophils # (auto) 3.75 K/uL (1.4-6.5); Neutrophils % (auto) 75.4 %; Platelet Count 169 K/uL (130-400); RDW Coefficient of Variation 14.8 % (11.5-14.5); RDW Standard Deviation 51.1 fL (36.4-46.3); Red Blood Count 4.03 M/uL (4.2-5.4); White Blood Count 4.98 K/uL (4.8-10.8)
[2020-10-03 06:35] LABS: Prothrombin Time > 90.0 Seconds (9.0-12.0)
[2020-10-03 06:40] LABS: INR > 9.7 (0.9-1.1)
[2020-10-03 06:48] LABS: Albumin Level 2.8 gm/dl (3.4-5.0); BUN Creatinine Ratio 19.1 (10-20); Calcium 9.1 mg/dl (8.5-10.1); Est GFR (Non-African American) 111.3; Potassium 3.5 mmol/L (3.5-5.1)
[2020-10-03 06:51] LABS: Albumin Globulin Ratio 0.9 (0.9-2); Bilirubin,Total 2.2 mg/dl (0.2-1); Globulin 3.1 gm/dl (2.5-4.0); Total Protein 5.9 gm/dl (6.4-8.2)
[2020-10-03] MEDS: MoRPHine SULFATE 2 MG/ML CARP IV PRN ×2 (07:54→07:57)
[2020-10-03] MEDS ORDERED: SODIUM CHLORIDE 0.9% 250 ML IV PRN (07:56)
[2020-10-03] MEDS ORDERED: SODIUM CHLORIDE 0.9% 1000ML 1,000 ML IV SCH (08:00)
[2020-10-03] MEDS ORDERED: PHYTONADIONE 10 MG in SODIUM CHLORIDE 0.9% 50 ML IV ONE (08:15)
--- NOTE | 2020-10-03 08:27 | Pulmonary Consultation ---
Date of Consultation October 03, 2020 Assessment & Plan (1) Pleural effusion: (2) Hypoxia: (3) Mediastinal adenopathy: (4) Abnormal CT scan of lung: Impression: 49-year-old female with metastatic breast cancer status postmastectomy, radiation therapy, and chemotherapy who appears to have progression of disease admitted with hypoxemia and pleural effusion. Recommendations: 1. Pleural effusion: The patient has never had pleural fluid sampling before so would not recommend proceeding directly to Pleurx catheter. Rather would recommend an initial thoracentesis for characterization of the fluid and to determine whether or not the patient has symptomatic improvement. Regardless, no pleural procedures can be performed until the patient's INR is below 1.5-1.7. In addition, the patient states that she is not interested in pursuing any additional procedures at this point time. I advised her that the fluid may increase and may result in progressive respiratory symptoms. We could definitely address this as an outpatient if needed. She expressed understanding and again states she is not interested in pursuing any procedures currently. 2. Elevated INR: Management per primary service. Again for any pleural procedures to be entertained, would need to get the INR down to 1.5. 3. Hypoxemia: Secondary to atelectasis and pleural effusion. The patient is doing well on oxygen currently at 2 L. She may require oxygen to go home with. 4. Metastatic breast cancer: The patient does not appear to be interested in aggressive procedures and consideration for palliation may be more appropriate. Will defer to the hospitalist and medical oncology. If the patient elects to remain in the hospital and is interested in pursuing additional pleural procedures, please contact us when the INR is in an acceptable range. Pulmonary will sign off at this point time. If the patient desires to pursue outpatient evaluation, she can follow-up with us in the pulmonary clinic. History of Present Illness Attending Physician: Tong Dominguez MD History of Present Illness Asked by the hospitalist to evaluate this patient with hypoxemia and pleural effusion in the setting of breast cancer. History is obtained from discussion with the patient as well as review electronic medical record. Patient is a 49-year-old female with a history of triple negative breast cancer status post mastectomy radiation and chemotherapy. She is anticoagulated on Coumadin for a left upper extremity DVT. She presented to the emergency room with progressive shortness of breath and was noted to be hypoxemic with oxygen saturations in the 80% range. She was placed on oxygen. She had a CT angiogram performed which showed no filling defects but did show a small to moderate left- sided pleural effusion. Ascites was also noted consistent with peritoneal carcinomatosis. DVT of the lower extremities was negative. Pulmonary was consulted for evaluation management of pleural effusion. The patient is seen sitting upright in bed. She is on oxygen. She states she is breathing fine. She is quite adamant that she does not want any pleural procedures done and is asking repeatedly about when she can go home. She denies any history of trauma to the chest. No fevers chills or night sweats. No chest tightness or chest pain. Allergies Allergy/AdvReac Type Severity Reaction Status Date / Time No Known Drug Allergies Allergy Unknown Verified 10/02/20 16:32 morphine AdvReac Nausea Verified 10/03/20 08:02 Home Medications Medication Instructions Recorded Confirmed Type omeprazole 20 mg capsule,delayed 20 mg PO DAILY PRN 02/13/20 10/02/20 History release loratadine [Claritin] 10 mg PO QAM PRN 02/29/20 10/02/20 History warfarin 5 mg tablet 2.5 - 5 mg PO UD tab 09/18/20 10/02/20 History Chemo Pill 5 tabs PO AMHS 10/02/20 10/02/20 History oxycodone 2.5 mg PO HS 10/02/20 10/02/20 History Patient History Medical History Allergic rhinitis Anxiety Breast cancer CHEMO; LUMPECTOMY Breast cancer, right breast Chronic GERD Deep vein thrombosis LEFT ARM AFTER A-PORT SURGERY. ON ELIQUIS. Depression with anxiety GERD (gastroesophageal reflux disease) History of arthritis History of migraine Port-A-Cath in place PLACED 08/2019 Skin cancer Swelling PT REPORTS ONGOING SWELLING TO LEFT BREAST AFTER LUMPECTOMY - REASON FOR CURRENT ABX - HAS APPT WITH SURGEON 03/27/20 FOR ASPIRATION TO R/O INFECTION Surgical History (Updated 04/08/20 @ 11:18 by Antolin Edmondson DO, FACS) H/O mastectomy (04/03/20) Left Breast Mastectomy Dr. Edmondson 04/03/20 H/O toe surgery lora hammertoes History of cryosurgery cervix History of dental surgery History of lumpectomy of left breast 03/06/2020 [facility] [place] Hx of carpal tunnel repair BL S/P colonoscopy S/P lumbar fusion S/P tonsillectomy S/P tubal ligation Status post surgery A-PORT (08/2019) Family History (Updated 08/22/20 @ 10:22 by Oly Gonzalez RN) Father Malignant neoplasm of larynx Heart disease Mother COPD (chronic obstructive pulmonary disease) Cancer Denies family history of Ovarian cancer Breast cancer Colorectal cancer Social History Smoking Status: Current some day smoker packs per day: 1; Years Smoked: 20; Cigarettes Per Day: 1PPD; Second Hand Exposure: Yes; Do You Dip or Chew Tobacco: No; Tobacco Cessation Education Requested by Patient: No Hx Alcohol Use: Yes Alcohol type: wine Hx Substance Use: No Preferred Language: Japanese Communication Ability: Effective 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 I have no additions or deletions Physical Exam Constitutional: WD/WN, vitals as above Neck: trachea midline, no thyromegaly Respiratory: normal respiratory effort Decreased breath sounds with dullness to percussion bilateral bases, left greater than right Cardiovascular: RRR, no murmur, no edema Gastrointestinal (Abdomen): normal bowel sounds, soft, nontender, no hepatosplenomegaly Musculoskeletal: Extremities: extremities normal to inspection Skin: no rashes, warm and dry Neurologic: Nonfocal exam Lymphatic: no cervical lymphadenopathy Results & Data Results & Data ([facility]) Vital Signs (Past 12 Hours) Vital Signs Temp Pulse Resp BP Pulse Ox 10/03/20 08:02 36.8 C 96 H 20 119/71 91 10/02/20 23:00 36.8 C 97 H 18 120/78 95 10/02/20 20:40 36.7 C 99 H 14 123/78 94 Laboratory Results 10/03/20 05:49 10/03/20 05:49 INR greater than 9 AST and ALT are elevated but not to the degree noted previously Diagnostic Findings CT of the chest independently reviewed. Moderate sized left pleural effusion with some compressive atelectasis. Mediastinal adenopathy appears progressed. Abdominal ascites noted. Some generalized body wall edema PG Care Time/CCT Total # of Minutes Spent Total Time Spent with Patient: Total time spent is greater than 50% in coordination of care (as documented) at patient's floor/unit and/or counseling patient: Coding Level of Care Code 17789 Office/OBS Consult Lvl 4 Diagnoses Pleural effusion J90 Hypoxia R09.02 Mediastinal adenopathy R59.[address] scan of lung R91.8
--- NOTE | 2020-10-03 10:11 | Discharge Summary ---
Date of Service October 03, 2020 Admission HPI Per Admitting Provider 49-year-old female with past medical history left breast triple negative breast cancer status post mastectomy/neoadjuvant therapy /radiation therapy, more recently diagnosed right breast triple negative breast cancer currently undergoing chemotherapy and follows with cancer center with Dr. Quintanilla, left upper extremity DVT on warfarin therapy, GERD, lumbar radiculopathy presents with progressive dyspnea and shortness of breath that has been ongoing for the past 2 or 3 weeks. Patient was at cancer center earlier today and noted to have oxygen saturations 80%. Patient was placed on oxygen and sent to ED for further evaluation. Patient notes more shortness of breath with exertion with activity as she would normally do fine with. Patient also notes that she has gained roughly 20 pounds in weight during the same time. Notes edema in her legs bilaterally and significant abdominal distention. Associated orthopnea which requires patient to sleep in her recliner. Patient otherwise denies any fevers, chills, sweats, nausea, vomiting, diarrhea, chest pain, diaphoresis palpitations, abdominal pain, URI symptoms, headache, known sick contacts or recent travel anywhere. Patient no other acute concerns or complaints. Pertinent labs: PT >90, INR >9.7, PTT 70.2, sodium 125, T bili 1.9, AST 195, ALT 109, alk phos 195, LDH 619, albumin 2.7, Covid negative Chest x-ray: Small to moderate left and trace right pleural effusions. These have progressed. Mild diffuse interstitial thickening. Left basilar densities likely represent atelectasis from the pleural effusion. Chest CTA: Without evidence of pulmonary thromboembolic disease. Progressive progressive disease manifested by increased size of the metastatic adenopathy with increased size of the left pleural effusion which is now moderate and like ly malignant. Upper abdominal peritoneal carcinomatosis with pathologic adenopathy and abdominal ascites. Abdomen pelvis CT: Interval development of moderate ascites since PET/CT of August 28, 2020. This is likely related to peritoneal carcinomatosis which has progressed since prior PET/CT. No bowel obstruction. Redemonstration of a 5.4 cm right ovarian cyst. Venous Doppler lower extremity: No evidence of deep venous thrombus within the bilateral lower extremities. ER course: P.o. Phytonadione 5mg Principal Diagnosis Shortness of breath due to malignant pleural effusion, coumadin toxicity Discharge Exam Constitutional + obese Eyes PERRL, conjunctivae normal, anicteric sclerae ENMT external ear and nose normal, oropharynx normal Neck trachea midline, no thyromegaly Respiratory normal respiratory effort and + dullness to percussion (left base) Cardiovascular RRR, no murmur, no edema Gastrointestinal (Abdomen) normal bowel sounds, soft, nontender, no hepatosplenomegaly Musculoskeletal no cyanosis or clubbing, extremities motor strength 5/5 Skin no rashes, warm and dry Neurologic patellar DTR's 2+ bilat, sensation intact Psychiatric A+Ox3, euthymic affect Discharge Data Allergies Allergy/AdvReac Type Severity Reaction Status Date / Time No Known Drug Allergies Allergy Unknown Verified 10/02/20 16:32 morphine AdvReac Nausea Verified 10/03/20 08:02 Consultations 10/02/20 16:21 ED Decision to Admit Stat 10/02/20 20:49 Consult Hematology Routine Consult Pulmonology Routine 10/03/20 10:05 Consult Palliative Care Routine Ordered Studies 10/02/20 14:53 CT abd pelvis IV con only Stat CT angio chest PE protocol Stat US venous doppler LE BI Stat Total Time Total Time Spent Total Time Spent (In Minutes): 35 minutes Total Time Includes: Examination of the Patient, Discharge Planning, Medication Reconciliation and Communication With Other Providers Discharge Plan Discharge Items Patient Disposition: Hospice - Home Reason For Visit: SOB HYPOXIA Discharge Diagnosis: Mtastatic breast cancer, suspected malignant effusion, coumadin toxicity Condition on Discharge: Fair Activity: Resume your previous activity Non-emergency contact: Primary Care Provider Call non-emergency contact if: you have any medication questions and your symptoms worsen Follow-up/Referrals: Cresencio Sanon MD [Primary Care Provider] - Diet: Regular Addtl Attending Provider Instructions: INR coumadin measurement every Wednesday and Wednesday, starting Oct 04 Pending Studies at Discharge: No Stand-Alone Forms: My [facility] [employer] Medications and DC Order Prescriptions: Continued warfarin 5 mg tablet 2.5 - 5 mg PO UD RF: 0 omeprazole 20 mg capsule,delayed release(DR/EC) 20 mg PO DAILY PRN (Reason: Acid Reflux) RF: 0 loratadine [Claritin] 10 mg Tablet 10 mg PO QAM PRN (Reason: allergies) RF: 0 oxycodone 5 mg tablet 2.5 mg PO HS RF: 0 Chemo Pill 5 tabs PO AMHS RF: 0 Discharge Orders: Discharge Order (Routine); Ordered 10/03/20 Ordered By: Tong Dominguez Admission Data Admit Date/Time: 10/02/20 18:47 Attending Provider: Tong Dominguez Admit Provider: Rogerio Montes Primary Care Provider: Cresencio Sanon Other Providers: Altaf Hilliard ; Brennan Garcia ; Giovanni Sahu ; Clarita Perez Other Interventions: Discharge Summary Assessment (RN) Last Done: 10/03/20 11:28 Coding Level of Care Code D/C Day Management >30 mins
--- NOTE | 2020-10-03 10:14 | Palliative Care Consultation ---
Date of Consultation October 03, 2020 Assessment & Plan (1) Palliative care encounter: Dasia is a 49 year old female patient who was diagnosed with node positive triple negative breast cancer in 07/2019, receiving standard dose-dense Adriamycin, cyclophosphamide followed by Taxol. Unfortunately, she developed bilateral disease and has had a dramatic lymphangitic spread since diagnosis. Her prognosis is exceedingly poor. In speaking to her she discussed that she primarily sees Jane Quintanilla for cancer management and has decided that she wanted to focus more conservatively and stop cancer treatment. Dr. Ragsdale was able to see Dasia and confirmed that she likely has a life expectancy of 3-6 months. Ultimately, the patient has decided that she would like to remain a full code at this time, but would like to pursue returning home with hospice services. She does live with her . I do not anticiapte that she requires any specific care needs from an equipment standpoint at this time. Case management aware and she agreed to have a referral placed to [facility] and services will begin today or tomorrow. She will be discharged to home today. A POLST form was completed indicating Full code, limited intervention, trial abx, and no artificial nutrition hydration. Currently she does not have additional symptom management needs. Hospice diagnosis would be metastatic breast cancer. Thanks for involving palliative care with this individual. (2) Breast cancer, right breast: (3) H/O mastectomy: History of Present Illness Reason for Consultation: Goals of care Requesting Physician: Dr. Dominguez Attending Physician: Tong Dominguez MD Allergies Allergy/AdvReac Type Severity Reaction Status Date / Time No Known Drug Allergies Allergy Unknown Verified 10/02/20 16:32 morphine AdvReac Nausea Verified 10/03/20 08:02 Home Medications Medication Instructions Recorded Confirmed Type omeprazole 20 mg capsule,delayed 20 mg PO DAILY PRN 02/13/20 10/02/20 History release loratadine [Claritin] 10 mg PO QAM PRN 02/29/20 10/02/20 History warfarin 5 mg tablet 2.5 - 5 mg PO UD tab 09/18/20 10/02/20 History Chemo Pill 5 tabs PO AMHS 10/02/20 10/02/20 History oxycodone 2.5 mg PO HS 10/02/20 10/02/20 History Patient History Medical History (Updated 10/03/20 @ 10:14 by CARMELA Clement) Allergic rhinitis Anxiety Breast cancer CHEMO; LUMPECTOMY Breast cancer, right breast Chronic GERD Deep vein thrombosis LEFT ARM AFTER A-PORT SURGERY. ON ELIQUIS. Depression with anxiety GERD (gastroesophageal reflux disease) History of arthritis History of migraine Palliative care encounter Port-A-Cath in place PLACED 08/2019 Skin cancer Swelling PT REPORTS ONGOING SWELLING TO LEFT BREAST AFTER LUMPECTOMY - REASON FOR CURRENT ABX - HAS APPT WITH SURGEON 03/27/20 FOR ASPIRATION TO R/O INFECTION Surgical History H/O mastectomy (04/03/20) Left Breast Mastectomy Dr. Edmondson 04/03/20 H/O toe surgery lora hammertoes History of cryosurgery cervix History of dental surgery History of lumpectomy of left breast 03/06/2020 [facility] Hx of carpal tunnel repair BL S/P colonoscopy S/P lumbar fusion S/P tonsillectomy S/P tubal ligation Status post surgery A-PORT (08/2019) Family History Father Malignant neoplasm of larynx Heart disease Mother COPD (chronic obstructive pulmonary disease) Cancer Denies family history of Ovarian cancer Breast cancer Colorectal cancer Social History Smoking Status: Current some day smoker packs per day: 1; Years Smoked: 20; Cigarettes Per Day: 1PPD; Second Hand Exposure: Yes; Hx Alcohol Use: Yes Alcohol type: wine Hx Substance Use: No Preferred Language: Yakut Communication Ability: Effective Front Office Secretary Required: No Beliefs That Will Affect Care: None marital status: Current Living Situation: Spouse current occupational status: unemployed Feels Safe at Home: Yes Assistive Devices: None Review of Systems Review of Systems: [place] Symptom Assessment System - Revised (ESAS-R) Tiredness: 1/3 SOB: 0/3 Anxiety: 0/3 Depression: 1/3 Palliative Performance Scale: 50% Physical Exam Constitutional: well developed and cooperative Respiratory: normal respiratory effort, lungs clear to auscultation Cardiovascular: RRR, no murmur, no edema Gastrointestinal (Abdomen): normal bowel sounds, soft, nontender, no hepatosplenomegaly Skin: no rashes, warm and dry Psychiatric: A+Ox3, euthymic affect Insight: good insight Judgement: good judgement Results & Data ([facility]) Vital Signs (Past 12 Hours) Vital Signs Temp Pulse Pulse Resp BP BP Pulse Ox 10/03/20 10:12 36.6 C 93 H 18 125/76 10/03/20 08:02 36.8 C 96 H 20 119/71 91 10/02/20 23:00 36.8 C 97 H 18 120/78 95 PG Care Time/CCT Total # of Minutes Spent Total Time Spent with Patient: Total time spent is greater than 50% in coordination of care (as documented) at patient's floor/unit and/or counseling patient: 70 Coding Level of Care Code 86130 Inpt Consult Level 3 Diagnoses Palliative care encounter Z51.5 Breast cancer, right breast C50.911 H/O mastectomy Z90.10 Time Spent (min) 70 Time Spent Midlevel Total time spent 70 minutes with > 50% of that time spent assessing the patient, discussing goals of care with the patient and collaborating with IDT
--- NOTE | 2020-10-03 10:26 | Consultation Report ---
DATE OF CONSULTATION: 10/03/2020 REASON FOR CONSULTATION: Metastatic triple negative breast cancer in a 49-year-old female. HISTORY OF PRESENT ILLNESS: The patient is a pleasant unfortunate 49-year-old female patient well known to [facility] with a diagnosis of metastatic triple negative breast cancer. The patient apparently presented to the office yesterday for assessment. She suffers from left upper extremity deep venous thrombosis, currently on Coumadin. She has complained of progressive shortness of breath and dyspnea on exertion over the past 2-3 weeks. Her O2 saturations in clinic were in the 80% range. She was subsequently placed on oxygen and sent to the Emergency Room. The patient has had progressive bilateral lower extremity edema with significant abdominal distention. She also battles with associated orthopnea and unfortunately has to sleep in a recliner. The patient was recently started on oral capecitabine as salvage. The patient was originally diagnosed with triple negative breast cancer in 07/2019 stage IIIA to be precise. She underwent a lumpectomy and axillary lymph node analysis confirming node positive disease. She was started on dose-dense Adriamycin and cyclophosphamide in 09/2019 and completed therapy in January. In short, this patient after receiving definitive adjuvant chemotherapy, developed bilateral breast disease and dermal lymphatic space involvement suggestive of an inflammatory carcinoma. More recently underwent PET scan in 08/2020, which suggested extensive metastatic disease which significantly changed from her original scans in 08/2019. Her clinical course was then complicated with a DVT involving the right internal jugular and subclavian as well as axillary veins in September and continues on Eliquis in this regard. The patient has had difficulty with compliance and had spoken to our physician reference library assistant about possible palliative care moving forward. I received the same sense this morning at bedside that the patient wants to abandon salvage chemotherapy and consider outpatient hospice care moving forward. Clinically her shortness of breath has improved since admission to hospital. She offers no complaints of pain, specifically today. We will discuss further with CARMELA Spear who has been managing the patient over the past several visits. PAST MEDICAL HISTORY: Significant for metastatic inflammatory breast cancer. GERD, left upper extremity deep venous thrombosis, depression with anxiety, history of arthritis and migraine headaches. PAST SURGICAL HISTORY: Mastectomy in 03/2020, history of toe surgery, carotid surgery, colonoscopy, lumbar fusion, tonsillectomy, tubal ligation and MediPort placement. MEDICATIONS: Include oxycodone 2.5 mg p.o. at bedtime, Xeloda as directed, warfarin 2.5-5 mg p.o. as directed, Claritin 10 mg p.o. daily, omeprazole 20 mg p.o. every day. ALLERGIES: No known drug allergies. FAMILY HISTORY: Father from throat cancer. He also suffered from heart disease. Mother of complications of chronic obstructive pulmonary disease. SOCIAL HISTORY: The patient lives with her spouse. She is currently unemployed. She enjoys wine. She has a 1 pack per day cigarette smoker x20 years. REVIEW OF SYSTEMS: As per HPI. General clinical decline. Bilateral lower extremity swelling and abdominal distention. No nausea or vomiting, no fever or chills at present. SKIN: Positive for inflammatory breast cancer. HEENT: She denies headaches, lightheadedness or dizziness at present. No acute visual or hearing deficits. No sinus symptoms, sore throat or dysphagia. LYMPH: Negative for history of lymphoproliferative disease. CARDIAC: No history of coronary artery disease, no angina or palpitations. PULMONARY: As per HPI, most notably for shortness of breath and dyspnea on exertion. No cough reported. GASTROINTESTINAL: Positive for abdominal distention. She is currently not nauseated. No diarrhea or constipation. GENITOURINARY: No hematuria, dysuria, urinary incontinence. PSYCHIATRIC: Positive for anxiety and depression by history. MUSCULOSKELETAL: Negative for focal skeletal pain. No arthralgias at present. ENDOCRINE: Negative for diabetes or thyroid disease. NEUROLOGIC: Negative for seizure, stroke, or migraine headache. HEMATOLOGIC: Negative for anemia, positive for upper extremity deep venous thrombosis by history. PHYSICAL EXAMINATION: GENERAL: Very pleasant 49-year-old female. Awake, alert and appropriate, in no acute distress. VITAL SIGNS: Temperature 36.8, pulse 97, respiratory rate 18, blood pressure 120/78. SKIN: Warm, dry, noncyanotic without petechia, rash or ecchymosis. HEENT: Head is atraumatic, normocephalic. Eyes: PERRLA, EOMI. Nares patent without rhinorrhea or discharge. Throat is clear. Tongue midline. NECK: Supple without JVD or thyromegaly. HEART: Regular rate and rhythm. No clicks, rubs, murmurs or gallops. LUNGS: Generally clear. No wheezing or rhonchi. ABDOMEN: Mildly distended, soft. Bowel sounds are active. No palpable hepatosplenomegaly. EXTREMITIES: No clubbing or cyanosis. Bilateral 1+ peripheral edema. NEUROLOGICALLY: She is awake, alert and oriented x3. Cranial nerves are intact. LABORATORY DATA: , platelet count 169,000. PT greater than 90 seconds. Sodium 129, potassium 3.5, chloride 93, carbon dioxide 27, creatinine 0.51, BUN 10, AST 178, ALT 94, alkaline phosphatase 173, albumin 2.8. IMPRESSION: 1. Metastatic triple negative breast cancer. 2. Hypoxia. 3. Left upper extremity deep venous thrombosis by history. 4. Elevated liver transaminases. 5. Mild hyponatremia. 6. Hypoalbuminemia. PLAN: The patient is a pleasant but unfortunate 49-year-old female patient diagnosed with node positive triple negative breast cancer in 07/2019, receiving standard dose-dense Adriamycin, cyclophosphamide followed by Taxol. Unfortunately, she developed bilateral disease and has had a dramatic lymphangitic spread since diagnosis. Her prognosis is exceedingly poor. She was recently started on oral capecitabine as salvage. The patient has had issues with compliance in the past according to Jane Spann our physician reference library assistant who cares for her predominantly within the practice. At bedside, patient expressed interest in pursuing palliation at this point. I do not object to this notion. Her prognosis remains quite poor and measure her survival in 3-6 months at best. I agree with current medical management. Obviously, she should be sent out on some sort of supplemental oxygen moving forward. I would activate the palliative team to engage in discussion. The patient admitted to me, her family is supportive of this decision. I have nothing further to add at this point. Thank you very much for allowing me to participate in her care. MARII
[2020-10-03 15:08] LABS: INR 1.7 (0.9-1.1); Prothrombin Time 17.4 Seconds (9.0-12.0)
--- NOTE | 2020-10-03 23:29 | Electrocardiogram Report ---
Test Reason : Blood Pressure : / mmHG Vent. Rate : 098 BPM Atrial Rate : 098 BPM P-R Int : 132 ms QRS Dur : 086 ms QT Int : 374 ms P-R-T Axes : 073 037 036 degrees QTc Int : 477 ms Normal sinus rhythm Low voltage QRS Cannot rule out Anterior infarct , age undetermined Nonspecific T wave abnormality Abnormal ECG When compared with ECG of 06-SEP-2019 10:05, QRS voltage has decreased Confirmed by Kristian Montelongo ([id number]) on 10/03/2020 11:28:54 PM Referred By: Confirmed By:Kristian Montelongo
--- NOTE | 2020-10-04 17:07 | Billing Data ---
Date of Service October 02, 2020 Coding Level of Care Code 63350 Initial Inpt Care Lvl 3
== END 2020-10-03 15:08 | disposition hospice, home (50) | DRG 598 ==
LOC: ED 14:06 → SUATTDRO 18:47 → 2N 18:47